=== PATIENT | male | born 1960 | race Caucasian/White ===

== ENCOUNTER 2020-10-03 09:19 | Inpatient (IN) | payer SELFPAY ==
[2020-10-03] MEDS ORDERED: Pantoprazole 40 MG VIAL ONE (09:53)
[2020-10-03 09:59] LABS: #Basophils 0.1 10x3/uL (0.0-0.2); #Eosinphils 0.1 10x3/uL (0.0-0.5); #Monocytes 1.2 10x3/uL (0.0-1.1); #Neutrophils 10.6 10x3/uL (1.5-8.4); %Basophils 0.5 % (0.0-2.0); %Eosinophils 0.9 % (0.0-6.0); %Lymphocytes 7.9 % (18.0-47.0); %Monocytes 9.4 % (0.0-10.0); %Neutrophils 80.5 % (40.0-75.0); Hemoglobin 10.1 g/dL (13.5-17.5); Mean Corpuscular HGB CONC 35.3 g/dL (32.0-36.0); Mean Corpuscular Hemoglobin 33.2 pg (27.0-33.0); Mean Corpuscular Volume 94.1 fl (81.2-95.1); Mean Platelet Volume 8.9 fl (7.4-10.4); Platelet Count 336 10x3/uL (150-450); RBC Distribution Width 11.5 % (11.5-14.5); Red Blood Cell (RBC) Count 3.04 10x6/uL (4.32-5.72); White Blood Cell (WBC) Count 13.2 10x3/uL (3.5-10.5)
[2020-10-03 10:11] LABS: ALT (SGPT) 12 U/L (8-55); AST (SGOT) 11 U/L (5-34); Albumin 3.2 g/dL (3.4-4.8); Alkaline Phosphatase 38 U/L (40-110); Anion Gap 13 mmol/L (10-20); BUN (Urea Nitrogen) 26 mg/dL (8.4-25.7); Bilirubin, Total 0.3 mg/dL (0.2-1.2); CK (CPK) 67 U/L (30-200); Calc. Creatinine Clearance 0 mL/min (70-130); Carbon Dioxide 20 mmol/L (23-31); Chloride 94 mmol/L (98-107); Globulin 1.8 g/dL (2.4-3.5); Glucose 115 mg/dL (80-115); Lipase 22 U/L (8-78); Potassium 3.5 mmol/L (3.5-5.1); Sodium 123 mmol/L (136-145)
[2020-10-03 10:14] LABS: PTT 25.7 sec (22.0-33.0); Prothrombin Time 10.8 sec (9.5-12.1)
[2020-10-03] MEDS ORDERED: Morphine 2 MG/ML VIAL ONE (11:22)
[2020-10-03 12:39] LABS: Iron Binding Capacity, Total 238 mcg/dL (261-462); Transferrin, Serum 190 mg/dL (163-344)
[2020-10-03 13:10] VITALS: BMI 26.1
[2020-10-03 13:22] LABS: Troponin I Less than 0.010 ng/mL (< 0.028)
[2020-10-03] MEDS: Pantoprazole 80 MG in Sodium Chloride 0.9% 100 ML IVPB SCH ×2 (13:34→21:43)
[2020-10-03 13:37] LABS: SARS-CoV-2 NAA Rapid Test Not Detected (NotDetected)
[2020-10-03 14:30] LABS: Hemoglobin 9.5 g/dL (13.5-17.5)
[2020-10-03 16:24] LABS: Troponin I 0.014 ng/mL (< 0.028)
[2020-10-03] MEDS: Acetaminophen 325 MG TAB PO PRN ×2 (17:05→23:03)
[2020-10-03] MEDS ORDERED: Sodium Chloride 0.9% 1,000 ML IV SCH (18:15)
[2020-10-03 18:51] LABS: Anion Gap 12 mmol/L (10-20); BUN (Urea Nitrogen) 26 mg/dL (8.4-25.7); Calc. Creatinine Clearance 144 mL/min (70-130); Calcium 7.7 mg/dL (7.8-10.44); Carbon Dioxide 18 mmol/L (23-31); Chloride 102 mmol/L (98-107); Glucose 83 mg/dL (80-115); Potassium 3.6 mmol/L (3.5-5.1); Sodium 128 mmol/L (136-145)
[2020-10-03] MEDS ORDERED: Pantoprazole 40 MG VIAL IVP SCH (21:00)
[2020-10-03] MEDS ORDERED: busPIRone HCl 15 MG TAB PO SCH (22:00)
[2020-10-03 22:22] LABS: Hemoglobin 9.9 g/dL (13.5-17.5)
[2020-10-04 02:09] LABS: Anion Gap 9 mmol/L (10-20); BUN (Urea Nitrogen) 17 mg/dL (8.4-25.7); Calc. Creatinine Clearance 147 mL/min (70-130); Calcium 7.7 mg/dL (7.8-10.44); Carbon Dioxide 20 mmol/L (23-31); Chloride 104 mmol/L (98-107); Glucose 90 mg/dL (80-115); Potassium 3.2 mmol/L (3.5-5.1); Sodium 130 mmol/L (136-145)
[2020-10-04] MEDS ORDERED: Potassium Chloride 20 MEQ TAB PO SCH (02:15)
[2020-10-04 04:49] LABS: #Eosinphils 0.2 10x3/uL (0.0-0.5); #Neutrophils 4.7 10x3/uL (1.5-8.4); %Basophils 0.6 % (0.0-2.0); %Eosinophils 3.3 % (0.0-6.0); %Lymphocytes 15.9 % (18.0-47.0); %Monocytes 13.8 % (0.0-10.0); %Neutrophils 65.8 % (40.0-75.0); Hemoglobin 9.1 g/dL (13.5-17.5); Mean Corpuscular HGB CONC 34.6 g/dL (32.0-36.0); Mean Corpuscular Hemoglobin 31.9 pg (27.0-33.0); Mean Corpuscular Volume 92.3 fl (81.2-95.1); Mean Platelet Volume 9.2 fl (7.4-10.4); Platelet Count 280 10x3/uL (150-450); RBC Distribution Width 11.8 % (11.5-14.5); Red Blood Cell (RBC) Count 2.85 10x6/uL (4.32-5.72); White Blood Cell (WBC) Count 7.2 10x3/uL (3.5-10.5)
[2020-10-04 04:52] LABS: Anion Gap 10 mmol/L (10-20); BUN (Urea Nitrogen) 18 mg/dL (8.4-25.7); Calc. Creatinine Clearance 149 mL/min (70-130); Calcium 7.7 mg/dL (7.8-10.44); Carbon Dioxide 19 mmol/L (23-31); Chloride 105 mmol/L (98-107); Glucose 80 mg/dL (80-115); Magnesium 1.8 mg/dL (1.6-2.6); Potassium 3.3 mmol/L (3.5-5.1); Sodium 131 mmol/L (136-145)
[2020-10-04 04:58] LABS: Phosphorus 2.3 mg/dL (2.3-4.7)
[2020-10-04] MEDS ORDERED: PROPOFOL 20 ML ONE ×3 (07:20→08:24)
[2020-10-04] MEDS: busPIRone HCl 15 MG TAB PO SCH ×2 (11:14→20:47)
[2020-10-04] MEDS: Acetaminophen 325 MG TAB PO PRN ×3 (11:15→20:47)
[2020-10-04] MEDS: Pantoprazole 80 MG in Sodium Chloride 0.9% 100 ML IVPB SCH ×2 (12:27→23:57)
[2020-10-04 15:40] LABS: Anion Gap 10 mmol/L (10-20); BUN (Urea Nitrogen) 9 mg/dL (8.4-25.7); Calc. Creatinine Clearance 151 mL/min (70-130); Calcium 7.7 mg/dL (7.8-10.44); Carbon Dioxide 20 mmol/L (23-31); Chloride 106 mmol/L (98-107); Glucose 79 mg/dL (80-115); Potassium 3.7 mmol/L (3.5-5.1); Sodium 132 mmol/L (136-145)
[2020-10-05 06:07] LABS: #Basophils 0.1 10x3/uL (0.0-0.2); #Eosinphils 0.3 10x3/uL (0.0-0.5); #Monocytes 0.7 10x3/uL (0.0-1.1); #Neutrophils 3.9 10x3/uL (1.5-8.4); %Basophils 0.8 % (0.0-2.0); %Lymphocytes 17.2 % (18.0-47.0); %Monocytes 12.2 % (0.0-10.0); %Neutrophils 64.3 % (40.0-75.0); Hemoglobin 9.2 g/dL (13.5-17.5); Mean Corpuscular HGB CONC 34.6 g/dL (32.0-36.0); Mean Corpuscular Hemoglobin 32.5 pg (27.0-33.0); Mean Platelet Volume 8.9 fl (7.4-10.4); Platelet Count 303 10x3/uL (150-450); RBC Distribution Width 11.8 % (11.5-14.5); Red Blood Cell (RBC) Count 2.83 10x6/uL (4.32-5.72); White Blood Cell (WBC) Count 6.1 10x3/uL (3.5-10.5)
[2020-10-05 06:17] LABS: Anion Gap 10 mmol/L (10-20); BUN (Urea Nitrogen) 5 mg/dL (8.4-25.7); Calc. Creatinine Clearance 163 mL/min (70-130); Carbon Dioxide 20 mmol/L (23-31); Chloride 103 mmol/L (98-107); Glucose 92 mg/dL (80-115); Potassium 3.1 mmol/L (3.5-5.1); Sodium 130 mmol/L (136-145)
[2020-10-05 07:13] LABS: Magnesium 1.7 mg/dL (1.6-2.6)
[2020-10-05] MEDS ORDERED: Potassium Chloride 20 MEQ TAB PO SCH (08:00)
[2020-10-05] MEDS ORDERED: Magnesium Oxide 400 MG TAB PO SCH (09:00)
[2020-10-05] MEDS ORDERED: Sodium Bicarbonate Tab 325 MG TAB PO SCH ×2 (09:00)
[2020-10-05] MEDS ORDERED: Lisinopril 20 MG TAB PO SCH (09:00)
[2020-10-05] MEDS ORDERED: Ergocalciferol 1.25 MG(50,000 UNITS) CAP PO SCH (09:00)
[2020-10-05] MEDS: Acetaminophen 325 MG TAB PO PRN (09:28)
[2020-10-05] MEDS: busPIRone HCl 15 MG TAB PO SCH (09:31)
[2020-10-05] MEDS: Potassium Bicarbonate/Cit Ac 20 MEQ TAB PO SCH ×2 (09:33→16:03)
[2020-10-05] MEDS ORDERED: Iron Sucrose Complex 400 MG in Sodium Chloride 0.9% 250 ML 250 ML IVPB SCH (13:00)
[2020-10-05 17:32] VITALS: BP 129/77; TEMP 98.2
[2020-10-06] MEDS ORDERED: Potassium Chloride 20 MEQ TAB PO SCH (08:00)
== END 2020-10-05 17:36 | disposition home or self-care (01) | DRG 378 ==
LOC: CSHERS 09:19 → CSHICU 10:31 → UNDOADMOB 10:57 → CSHICU 10:57 → INTOOBSV 10:57 → CSHTELE 20:54 → OBSVTOIN 10-05 14:23
PROVIDERS: ADMIT Family Medicine; ATTEND Family Medicine
PROC: 30233N1 Transfusion of Nonautologous Red Blood Cells into Peripheral Vein, Percutaneous Approach (ICD-10-PCS; 2020-10-03)
PROC: 0W3P8ZZ Control Bleeding in Gastrointestinal Tract, Via Natural or Artificial Opening Endoscopic (ICD-10-PCS; principal; 2020-10-04)
PROC: 0DB68ZX Excision of Stomach, Via Natural or Artificial Opening Endoscopic, Diagnostic (ICD-10-PCS; 2020-10-04)
DX: K25.4 Chronic or unspecified gastric ulcer with hemorrhage (principal); E87.1 Hypo-osmolality and hyponatremia; D62 Acute posthemorrhagic anemia; E87.2 Acidosis; Z20.822 Contact with and (suspected) exposure to COVID-19; I10 Essential (primary) hypertension; C61 Malignant neoplasm of prostate; R55 Syncope and collapse; E87.6 Hypokalemia; E83.51 Hypocalcemia; Z79.1 Long term (current) use of non-steroidal anti-inflammatories (NSAID); Z79.899 Other long term (current) drug therapy
CPT/HCPCS: 36415; 36430; 71045; 80048; 80053; 82274; 82306; 82550; 82728; 83540; 83550; 83605; 83690; 83735; 83930; 83935; 84100; 84300; 84466; 84484; 85025; 85610; 85730; 86850; 86900; 86901; 88305; 88312; 93005; 93306; 93880; 96374; C9113; G0378; J1756; J2270; J2704; J3490; J7050; P9016; U0002

== ENCOUNTER 2021-04-23 12:58 | Outpatient (CLI) | payer BC ==
[2021-04-23 13:29] LABS: Estimated GFR-MDRD - POC Greater than 90
== END 2021-04-23 12:59 | disposition home or self-care (01) ==
LOC: CSHMRI 12:58
PROVIDERS: ATTEND Specialist
DX: M47.12 Other spondylosis with myelopathy, cervical region (principal); M48.04 Spinal stenosis, thoracic region; M51.17 Intervertebral disc disorders with radiculopathy, lumbosacral region; M96.1 Postlaminectomy syndrome, not elsewhere classified; Z98.1 Arthrodesis status; M47.812 Spondylosis without myelopathy or radiculopathy, cervical region; M48.02 Spinal stenosis, cervical region; M47.814 Spondylosis without myelopathy or radiculopathy, thoracic region; M47.816 Spondylosis without myelopathy or radiculopathy, lumbar region; Z98.890 Other specified postprocedural states
CPT/HCPCS: 72141; 72146; 72158; 82565

== ENCOUNTER 2021-09-11 08:10 | Outpatient (CLI) | payer BC | END 2021-09-11 08:11 | disposition home or self-care (01) | LOC: CSHMRI 08:10 | PROVIDERS: ATTEND Orthopaedic Surgery | DX: M23.91 Unspecified internal derangement of right knee (principal); M23.303 Other meniscus derangements, unspecified medial meniscus, right knee; M17.11 Unilateral primary osteoarthritis, right knee; M23.8X1 Other internal derangements of right knee; M71.21 Synovial cyst of popliteal space [Baker], right knee ==

== ENCOUNTER 2022-04-11 19:24 | Emergency (ER) | payer OTHER, BC | END 2022-04-11 21:08 | disposition home or self-care (01) | LOC: CSHERS 19:24 | DX: S80.211A Abrasion, right knee, initial encounter (principal); S50.311A Abrasion of right elbow, initial encounter; S90.511A Abrasion, right ankle, initial encounter; I10 Essential (primary) hypertension; Z79.899 Other long term (current) drug therapy; V19.9XXA Pedal cyclist (driver) (passenger) injured in unspecified traffic accident, initial encounter ==

== ENCOUNTER 2023-12-20 09:22 | Outpatient (CLI) | payer BC | END 2023-12-20 09:23 | disposition home or self-care (01) | LOC: CSHMRI 09:22 | PROVIDERS: ATTEND Urology | DX: C61 Malignant neoplasm of prostate (principal); R97.20 Elevated prostate specific antigen [PSA]; N20.0 Calculus of kidney | CPT/HCPCS: 72197; 74178; 82565 ==